=== PATIENT | female | born 1995 | race Caucasian/White ===

== ENCOUNTER 2017-10-26 10:18 | Emergency (ER) | END 2017-10-26 13:41 | disposition home or self-care (01) ==

== ENCOUNTER 2018-08-05 14:42 | Inpatient (IN) | payer MEDICAID, OTHER ==
[~2018-08-05] VITALS: Ht 157.5 cm; Wt 101.8 kg
[~2018-08-05 14:42] MED LIST: CIPR500T4 PO
[2018-08-05 15:59] VITALS: Ht 157.5 cm; Wt 101.8 kg
[2018-08-05 16:00] VITALS: BP 115/58; PULSE 110; RESP 18
[2018-08-05] MEDS ORDERED: CEFTRIAXONE 1 GM/50 ML (PMX) 50 ML IVPB ONE (20:30)
[2018-08-05] MEDS ORDERED: SOD CHLORIDE 0.9% 1,000 ML IV ONE (20:30)
[2018-08-05] MEDS ORDERED: ACETAMINOPHEN 1000MG/100ML IV 100 ML IVPB ONE (23:00)
[2018-08-05] MEDS: LACTATED RINGER'S 1,000 ML IV SCH (23:08)
[2018-08-06] MEDS ORDERED: ACETAMINOPHEN 325 MG TAB PO PRN (00:30)
[2018-08-06] MEDS ORDERED: ONDANSETRON 4 MG INJ IV PRN (00:30)
--- NOTE | 2018-08-06 01:28 | TRIAGE ---
OB Triage Datetime Report Generated by CPN: 08/06/2018 01:28 Datetime: 08/06/2018 01:03 Vaginal Exam Membrane Status: Intact Datetime: 08/05/2018 22:30 Stage of : OB Triage Datetime: 08/05/2018 22:16 Stage of : OB Triage Heart Rate FHR Baseline Rate: 150 Monitor Mode: External US Pain Assessment Pain Scale: 5 Pain Presence: Constant Pain Type: Stabbing Pain Location: Abdomen Pain Assessment Comments: Pt c/o cont pain under left ribcage and left groin area Datetime: 08/05/2018 21:38 Stage of : OB Triage Heart Rate FHR Baseline Rate: 145 Monitor Mode: External US Datetime: 08/05/2018 21:14 Heart Rate FHR Baseline Rate: 145 Monitor Mode: External US Datetime: 08/05/2018 21:00 Stage of : OB Triage Datetime: 08/05/2018 20:14 Stage of : OB Triage Monitor Mode: External Pattern: Normal: <= 5 Contractions in 10 Minutes Resting Tone [place]: Relaxed Heart Rate FHR Baseline Rate: 145 Monitor Mode: External US Datetime: 08/05/2018 20:05 Stage of : OB Triage Datetime: 08/05/2018 19:49 Pain Assessment Comments: Pt c/o cont pain. Laughing with family and Facetimimg friend on phone wit hout discomfort noted Datetime: 08/05/2018 19:32 Stage of : OB Triage Heart Rate FHR Baseline Rate: 150 Monitor Mode: External US Variability: Moderate 6-25 bpm Accelerations: 15X15 Comments: Baby audibly very active but difficult to monitor d/t pt body habitus and frequent reposi tioning Pain Assessment Pain Scale: 5 Pain Presence: Constant Pain Type: Stabbing Pain Location: Abdomen Datetime: 08/05/2018 18:19 Labor Evaluation Frequency: 0 Monitor Mode: External Pattern: Normal: <= 5 Contractions in 10 Minutes Resting Tone [place]: Relaxed Heart Rate FHR Baseline Rate: 145 Monitor Mode: External US Variability: Moderate 6-25 bpm Accelerations: None Decelerations: None Category: Category II Pain Assessment Pain Scale: 0 Pain Presence: None/Denies Pain Type: N/A Pain Goal: 3 Pain Relief Measures: Comfort Measures Datetime: 08/05/2018 17:16 Labor Evaluation Frequency: 0 Monitor Mode: External Pattern: Normal: <= 5 Contractions in 10 Minutes Resting Tone [place]: Relaxed Heart Rate FHR Baseline Rate: 150 Monitor Mode: External US Variability: Moderate 6-25 bpm Accelerations: None Decelerations: None Category: Category II Pain Assessment Pain Scale: 5 Pain Presence: Intermittent Pain Type: Cramping Pain Location: Perineum Pain Goal: 3 Pain Relief Measures: Comfort Measures Datetime: 08/05/2018 15:54 Stage of : OB Triage Datetime: 08/05/2018 15:49 Stage of : OB Triage Assessment Type: Triage Maternal Assessment Level of Consciousness: Keenly Alert, Responsive DTR's/Clonus: DTRs 2+; No Clonus Headache: Denies Blurred Vision: No Respiratory Effort: Unlabored; Regular Rhythm; Equal Expansion Breath Sounds, Left: Clear and Equal Breath Sounds, Right: Clear and Equal Nausea/Vomiting: Denies RUQ Epigastric Pain: Denies Facial Edema: None Temperature Route: Axillary Fall Risk Assessment History of Falling: (0) No Secondary Diagnosis: (0) No Ambulatory Aid: (0) Bedrest/Nurse Assist IV Therapy: (0) No Gait: (0) Normal/Bedrest/Immobile Mental Status: (0) Oriented to Own Ability Fall Score: 0 Fall Risk Score Definition: No Risk: No action required Labor Evaluation Frequency: 0 Monitor Mode: External Pattern: Normal: <= 5 Contractions in 10 Minutes Resting Tone [place]: Relaxed Heart Rate FHR Baseline Rate: 145 Monitor Mode: External US Variability: Moderate 6-25 bpm Accelerations: 10X10 Decelerations: None Category: Category I Pain Assessment Pain Scale: 5 Pain Presence: Intermittent Pain Type: Cramping; Contraction Pain Location: Perineum Pain Goal: 3 Pain Relief Measures: Comfort Measures Datetime: 08/05/2018 15:47 Time of Arrival: 08/05/2018 14:38 EGA: 30.6 Arrived By: Ambulatory Arrived From: Home Chief Complaint: C/O STREAM OF BLOOD DOWN HER LEG AT APPROX 130, C/O PERINEUM PAIN THAT IS INTERMIT TENT, DENIES LEAKING Movement: Decreased Contractions: Denies/Absent Rupture of Membranes: Denies Vaginal Bleeding: Small Vaginal Discharge: Denies Recent Sexual Intercouse: Denies Abdominal Trauma: Not Applicable Patient Complaints: Cramping Time Provider Notified: 08/05/2018 15:55 Provider Notified: abdias Initial Plan: MONITOR, BPP, TYPE_RH, CBC, CL
--- NOTE | 2018-08-06 07:33 | HP ---
Date/Time of Note Date/Time of Note DATE: 08/06/18 TIME: 07:11 OB - History Hx of Present Free Text/Dictation 23 y.o at 30w6d presented triage with c/o vaginal spotting without hx of intercourse,and pain near the ribcage mostly on left side which is intermittent. denies any leaking fluid, had nausea x1 vomit ,no diarrhea, had chills ? U/A ++ leuko est, wbc > 10 CBC wnl BPP 8/8 BRITTANEY 13.5 , no previa or abruptio pl, CVL 4.4 IV hydration with rocephin given, with IV tylenol for pain, continue to c/o left flank pain which wasn't alleviated . no uc's noted on EFM recked CVA which was ++ tenderness on left side admitted for IV antibiotics with fluid for another day and observe. urine culture was sent out. Chief Complaint: left flank pain Estimated Due Date: Oct 08, 2018 : 4 Para: 3 Spontaneous : 0 Therapeutic : 0 Care: Other Ultrasounds: No ultrasounds Obstetrical Complications: None Medical Complications: None Past Family/Social History * Past Medical, Surgical, Family and Obstetric Histories reviewed from chart. Blood Type: Unknown Rubella: unknown RPR/VDRL: Unknown GBS Status: Unknown HBsAG: Unknown OB Admission Exam Vital Signs Vital Signs Vital Signs Date Temp Pulse Resp B/P (MAP) Pulse Ox O2 O2 Flow FiO2 Time Delivery Rate 08/05/18 98.9 110 18 115/58 16:00 (77) Physical Exam HEENT: WNL Heart: Rhythm Normal Lungs: Clear, Equal Abdomen: WNL Extremities: Normal Reflexes: Other Cervical Dilatation: other Effacement: Other (CVL 4.4) Station: Other Membranes: Intact Amniotic Fluid: Unevaluable Heart Rate: 140's Accelerations: Accelerations Present Decelerations: No Decelerations Varibility: Moderate Contractions on Admission: None Last 72 hours Lab Results CBC & BMP 08/05/18 16:52 OB Assessment/Plan Reason for admission: other Other Assessment: IUP 30w6d [employer] Plan: Other (IV fluid with rocephin) NANCY ROACH MD Aug 06, 2018 07:29
[2018-08-06] MEDS: PRENATAL VITAMIN PO SCH (09:30)
[2018-08-06] MEDS: LACTATED RINGER'S 1,000 ML IV SCH ×3 (09:30→23:00)
[2018-08-06] MEDS: FERROUS SULFATE (EC) 325 MG TAB PO SCH (09:30)
[2018-08-06] MEDS: SOD CHLORIDE 0.9% 1,000 ML IV SCH ×3 (20:30→21:07)
[2018-08-06] MEDS: CEFTRIAXONE 1 GM/50 ML (PMX) 50 ML IVPB SCH (21:08)
[2018-08-07] MEDS: SOD CHLORIDE 0.9% 1,000 ML IV SCH ×3 (04:06→19:20)
[2018-08-07] MEDS: FERROUS SULFATE (EC) 325 MG TAB PO SCH (09:16)
[2018-08-07] MEDS: PRENATAL VITAMIN PO SCH (09:16)
[2018-08-07] MEDS: CEFTRIAXONE 1 GM/50 ML (PMX) 50 ML IVPB SCH (20:47)
--- NOTE | 2018-08-07 21:46 | QN ---
Documentation Comment Patient denies any fever or chills. Reports he still has flank pain which she reports her pain level decreased from 6-5. She denies any contraction. She denies any leaking of fluid, vaginal bleeding or decreased movement. Physical examination: General appearance: Alert and oriented x4 does not appear to be in any acute distress comfortable Abdomen: Soft, gravid, fundal height consider gestational age Mild CVA tenderness in both side noted Extremities: No calf tenderness, no click no edema no cord palpable NST: Category 1 and appropriate for gestational age Assessment IUP at 31 weeks and 1 day Undergoing treatment for pyelonephritis Currently on Rocephin every 24 hours Continue same management Urine culture pending If no clinical improvement after 48 hours may need renal ultrasound Currently afebrile, does not appear to be toxic IV hydration MYNOR ESTRADA MD Aug 07, 2018 21:46
[2018-08-08] MEDS: SOD CHLORIDE 0.9% 1,000 ML IV SCH ×4 (00:45→22:50)
[2018-08-08] MEDS: FERROUS SULFATE (EC) 325 MG TAB PO SCH (08:56)
[2018-08-08] MEDS: PRENATAL VITAMIN PO SCH (08:56)
--- NOTE | 2018-08-08 10:29 | QN ---
Documentation Comment 31+wks GA Pyelonephritis +Right CVA tenderness NST reassuring for GA [place] No CTxs pelvic deferred --->close Observation -->continue the antibiotics ERIK VAN M.D. Aug 08, 2018 10:29
[2018-08-08] MEDS: AL HYDROX/MG HYDROX/SIMETH 30 ML CUP PO PRN (15:11)
[2018-08-08] MEDS: CEFTRIAXONE 1 GM/50 ML (PMX) 50 ML IVPB SCH (21:14)
[2018-08-09] MEDS: AL HYDROX/MG HYDROX/SIMETH 30 ML CUP PO PRN (00:49)
[2018-08-09] MEDS: SOD CHLORIDE 0.9% 1,000 ML IV SCH (08:59)
[2018-08-09] MEDS: FERROUS SULFATE (EC) 325 MG TAB PO SCH (12:07)
[2018-08-09] MEDS: PRENATAL VITAMIN PO SCH (12:07)
--- NOTE | 2018-08-09 12:11 | DS ---
Date/Time of Note Date/Time of Note DATE: 08/09/18 TIME: 12:10 Obstetrical Discharge Record Final Diagnosis Final Diagnosis: not delivered Other Final Diagnosis Patient is a 23-year-old 4 para 0 at 31 weeks and 3 days of gestation admitted with diagnosis of pyelonephritis Patient has been receiving IV antibiotics She remained stable and afebrile She has no complaints today Microbiology URINE CULTURE Final Organism 1 MIXED GRAM POSITIVE ORGANISMS COLONY COUNT 50,000 - 60,000 CFU/ml Recovery of multiple organisms in a urine specimen is consistent with contamination. Full speciation and susceptibilities may provide misleading information in a "dirty catch" specimen. If clinically indicated, a repeat specimen is recommended. Prescription for Macrobid was given Patient was given instruction to follow-up with [facility] in 1 to 2 days Condition on Discharge Physical Assessment Last Vitals: Vital Signs Date Temp Pulse Resp B/P (MAP) Pulse Ox O2 O2 Flow FiO2 Time Delivery Rate 08/05/18 98.9 110 18 115/58 16:00 (77) Voiding: Yes Breast: Soft, non-tender Fundus: Other (Gravid) Calf Tenderness: No Patient Condition: Good Copies To: CC: DARRELL GARRISON BAHAREH MD Aug 09, 2018 12:11
[2018-08-09] MEDS ORDERED: PREN1TAB71 PO (12:23)
== END 2018-08-09 13:00 | disposition home or self-care (01) | DRG 833 ==
LOC: OBT 14:42 → L-D 14:43 → OBT 08-06 00:01 → L-D 08-06 00:01
PROVIDERS: ADMIT Obstetrics & Gynecology; ATTEND Obstetrics & Gynecology
DX: O23.03 Infections of kidney in pregnancy, third trimester (principal); Z3A.31 31 weeks gestation of pregnancy
CPT/HCPCS: 76817; 76818; 81001; 83036; 85025; 86900; 86901; 87086; 96360; 96361; 96365; G0463; J0131; J0696; J7030; J7120

== ENCOUNTER 2018-08-23 00:45 | Outpatient (CLI) | payer SELFPAY ==
[~2018-08-23] VITALS: Ht 157.5 cm; Wt 103.1 kg
[~2018-08-23 00:45] MED LIST changes: -CIPR500T4 PO; +PREN1TAB71 PO
[2018-08-23 01:18] VITALS: BP 118/68; PULSE 93; RESP 18
[2018-08-23 02:29] VITALS: Ht 157.5 cm; Wt 103.1 kg
--- NOTE | 2018-08-23 03:10 | PN ---
Triage Information Date/Time Reason for visit: DFM Weeks of Gestation 33 weeks /Para Diabetes: gestational Diabetes management: diet controlled Hypertention: none Objective Vital Signs Date Temp Pulse Resp B/P (MAP) Pulse Ox O2 O2 Flow FiO2 Time Delivery Rate 08/23/18 98.2 93 18 118/68 Room Air 01:18 (85) Heart Rate: 130's Heart Rate Comments Reactive Contractions: None Results/Medications Results 24 hrs Laboratory Tests Test 08/23/18 01:23 Bedside Glucose 105 Imaging Results BPP 09/30 Disposition: Discharge Assessment/Plan Follow up in clinic in AM. Antepartum testing on 08/24/2018. JAMSHID LOGAN MD Aug 23, 2018 03:10
--- NOTE | 2018-08-23 04:39 | TRIAGE ---
OB Triage Datetime Report Generated by CPN: 08/23/2018 04:38 Datetime: 08/23/2018 03:00 Labor Evaluation Frequency: 0 Monitor Mode: External Pattern: Normal: <= 5 Contractions in 10 Minutes Heart Rate FHR Baseline Rate: 130 Monitor Mode: External US Variability: Moderate 6-25 bpm Accelerations: 15X15 Datetime: 08/23/2018 02:00 Labor Evaluation Frequency: x1 Monitor Mode: External Duration (sec)2399: 120 Pattern: Normal: <= 5 Contractions in 10 Minutes Heart Rate FHR Baseline Rate: 140 Monitor Mode: External US Variability: Moderate 6-25 bpm Accelerations: 15X15 Decelerations: None Comments: loss of contact Datetime: 08/23/2018 01:56 Monitor Mode: External US Datetime: 08/23/2018 01:18 Stage of : OB Triage Assessment Type: Triage Maternal Assessment Level of Consciousness: Keenly Alert, Responsive DTR's/Clonus: DTRs 2+; No Clonus Headache: Frontal Blurred Vision: No Respiratory Effort: Unlabored; Regular Rhythm; Equal Expansion Breath Sounds, Left: Clear and Equal Breath Sounds, Right: Clear and Equal Nausea/Vomiting: Denies RUQ Epigastric Pain: Denies Lower Extremities Edema: None Degree: None Upper Extremities Edema: None Degree: None Facial Edema: None Temperature Route: Oral Bedside Blood Glucose: 105 Fall Risk Assessment History of Falling: (0) No Secondary Diagnosis: (0) No Ambulatory Aid: (0) Bedrest/Nurse Assist IV Therapy: (0) No Gait: (0) Normal/Bedrest/Immobile Mental Status: (0) Oriented to Own Ability Fall Score: 0 Fall Risk Score Definition: No Risk: No action required Pain Assessment Pain Scale: 3 Pain Presence: Intermittent Pain Type: Cramping Pain Location: Abdomen Pain Goal: 0 Pain Relief Measures: Comfort Measures Datetime: 08/23/2018 01:17 Comments: AUDIBLE FHT'S. MONITORS APPLIED. Datetime: 08/23/2018 00:50 Time of Arrival: 08/23/2018 00:45 EGA: 33.3 Arrived By: Ambulatory Arrived From: Home Chief Complaint: HIGH BLOOD SUGAR AND DFM Movement: Decreased Contractions: Denies/Absent Rupture of Membranes: Denies Vaginal Bleeding: None Vaginal Discharge: Denies Recent Sexual Intercouse: Denies Abdominal Trauma: Not Applicable Patient Complaints: Other Time Provider Notified: 08/23/2018 02:49 Provider Notified: DELSHAD Initial Plan: CEFM, ACCUCHECK, BPP, UA Datetime: 08/09/2018 11:51 Maternal Assessment Level of Consciousness: Keenly Alert, Responsive Headache: Denies Blurred Vision: No Nausea/Vomiting: Denies RUQ Epigastric Pain: Denies Facial Edema: None Labor Evaluation Frequency: x1 Monitor Mode: External Duration (sec)2399: 60 Quality: Mild Pattern: Normal: <= 5 Contractions in 10 Minutes Resting Tone Vass: Relaxed Heart Rate FHR Baseline Rate: 130 Monitor Mode: External US FHR Baseline Changes: No Baseline Change Variability: Moderate 6-25 bpm Accelerations: 15X15 Decelerations: None Pain Assessment Pain Scale: 4 Pain Presence: Constant Pain Type: Cramping Pain Location: Back Datetime: 08/09/2018 10:00 Maternal Assessment Level of Consciousness: Keenly Alert, Responsive Headache: Denies Blurred Vision: No Nausea/Vomiting: Denies RUQ Epigastric Pain: Denies Facial Edema: None Pain Assessment Pain Scale: 4 Pain Presence: Constant Pain Type: Cramping Pain Location: Back Datetime: 08/09/2018 09:03 Assessment Type: Ongoing Assessment Maternal Assessment Level of Consciousness: Keenly Alert, Responsive Headache: Denies Blurred Vision: No Respiratory Effort: Unlabored; Regular Rhythm; Equal Expansion Breath Sounds, Left: Clear and Equal Breath Sounds, Right: Clear and Equal Nausea/Vomiting: Denies RUQ Epigastric Pain: Denies Lower Extremities Edema: None Degree: None Upper Extremities Edema: None Degree: None Facial Edema: None Fall Risk Assessment History of Falling: (0) No Secondary Diagnosis: (0) No Ambulatory Aid: (0) Bedrest/Nurse Assist IV Therapy: (20) Yes (Annotations: INFUSING NS @100ML/HR) Gait: (0) Normal/Bedrest/Immobile Mental Status: (0) Oriented to Own Ability Fall Score: 20 Fall Risk Score Definition: No Risk: No action required Pain Assessment Pain Scale: 4 Pain Presence: Constant Pain Type: Cramping Pain Location: Back Datetime: 08/09/2018 00:37 Maternal Assessment Level of Consciousness: Keenly Alert, Responsive Temperature Route: Oral Datetime: 08/08/2018 20:18 Labor Evaluation Frequency: X1 Monitor Mode: External Duration (sec)2399: 90 Quality: Mild Heart Rate FHR Baseline Rate: 150 Monitor Mode: External US FHR Baseline Changes: No Baseline Change Variability: Moderate 6-25 bpm Accelerations: 15X15 Decelerations: None Category: Category I Comments: DIFFICULT TO GET SOLID TRACING - HAND HELD FOR STRIP. Datetime: 08/08/2018 19:41 Assessment Type: Ongoing Assessment Maternal Assessment Level of Consciousness: Keenly Alert, Responsive Maternal Assessment Level of Consciousness: Keenly Alert, Responsive Headache: Denies Headache: Denies Blurred Vision: No Respiratory Effort: Unlabored; Regular Rhythm; Equal Expansion Nausea/Vomiting: Denies Nausea/Vomiting: Denies RUQ Epigastric Pain: Denies Lower Extremities Edema: None Upper Extremities Edema: None Facial Edema: None Temperature Route: Oral Fall Risk Assessment History of Falling: (0) No Secondary Diagnosis: (0) No Ambulatory Aid: (0) Bedrest/Nurse Assist IV Therapy: (20) Yes Gait: (0) Normal/Bedrest/Immobile Mental Status: (0) Oriented to Own Ability Fall Score: 20 Fall Risk Score Definition: No Risk: No action required Datetime: 08/08/2018 12:54 Temperature Route: Oral Pain Assessment Pain Scale: 3 Pain Presence: Intermittent Pain Type: Ache Pain Location: Back Pain Goal: 0 Pain Relief Measures: Comfort Measures Datetime: 08/08/2018 09:30 Labor Evaluation Frequency: 0 Monitor Mode: External Heart Rate FHR Baseline Rate: 135 Monitor Mode: External US FHR Baseline Changes: No Baseline Change Variability: Moderate 6-25 bpm Accelerations: 15X15 Decelerations: None Category: Category I Comments: NST COMPLETE AND STRIP IS REACTIVE. Datetime: 08/08/2018 09:05 Monitor Mode: External Monitor Mode: External US Comments: NST STARTED NOW. TOCO AND US PLACED EXTERNALLY Datetime: 08/08/2018 07:40 Assessment Type: Ongoing Assessment Maternal Assessment Level of Consciousness: Keenly Alert, Responsive DTR's/Clonus: DTRs 2+; No Clonus Headache: Denies Blurred Vision: No Respiratory Effort: Unlabored; Regular Rhythm; Equal Expansion Breath Sounds, Left: Clear and Equal Breath Sounds, Right: Clear and Equal Nausea/Vomiting: Denies RUQ Epigastric Pain: Denies Lower Extremities Edema: None Upper Extremities Edema: None Facial Edema: None Fall Risk Assessment History of Falling: (0) No Secondary Diagnosis: (0) No Ambulatory Aid: (0) Bedrest/Nurse Assist IV Therapy: (20) Yes Gait: (0) Normal/Bedrest/Immobile Mental Status: (0) Oriented to Own Ability Fall Score: 20 Fall Risk Score Definition: No Risk: No action required Datetime: 08/08/2018 05:52 Stage of : Antepartum Temperature Route: Oral Pain Presence: None/Denies Datetime: 08/07/2018 21:29 Labor Evaluation Frequency: 0 Monitor Mode: External Duration (sec)2399: DENIES Resting Tone Vass: Relaxed Heart Rate FHR Baseline Rate: 135 Monitor Mode: External US Variability: Moderate 6-25 bpm Accelerations: 15X15 Decelerations: None Comments: NST DONE APPROPRIATE FOR GA. Pain Presence: None/Denies Datetime: 08/07/2018 20:51 Monitor Mode: External Contraction Comments: PLACED NST STARTED. Monitor Mode: External US Comments: PLACED NST STARTED. Datetime: 08/07/2018 19:46 Stage of : Antepartum Assessment Type: Ongoing Assessment Maternal Assessment Level of Consciousness: Keenly Alert, Responsive DTR's/Clonus: DTRs 2+; No Clonus Headache: Denies Blurred Vision: No Respiratory Effort: Unlabored; Regular Rhythm; Equal Expansion Breath Sounds, Left: Clear and Equal Breath Sounds, Right: Clear and Equal Nausea/Vomiting: Denies RUQ Epigastric Pain: Denies Lower Extremities Edema: None Degree: None Upper Extremities Edema: None Degree: None Facial Edema: None Temperature Route: Oral Fall Risk Assessment History of Falling: (0) No Secondary Diagnosis: (0) No Ambulatory Aid: (0) Bedrest/Nurse Assist IV Therapy: (0) No Gait: (0) Normal/Bedrest/Immobile Mental Status: (0) Oriented to Own Ability Fall Score: 0 Fall Risk Score Definition: No Risk: No action required Pain Presence: None/Denies Vaginal Exam Membrane Status: Intact Datetime: 08/07/2018 18:17 Pain Assessment Pain Scale: 5 Pain Presence: Constant Pain Type: Ache Pain Location: Back Pain Goal: 5 Pain Relief Measures: Comfort Measures Datetime: 08/07/2018 15:10 Pain Assessment Pain Scale: 5 Pain Presence: Constant Pain Type: Ache Pain Location: Back Pain Relief Measures: Comfort Measures Pain Assessment Comments: continues to deny need for pain meds Datetime: 08/07/2018 13:00 Pain Assessment Pain Scale: 5 Pain Presence: Constant Pain Type: Ache Pain Location: Back Pain Goal: 5 Pain Relief Measures: Comfort Measures (Annotations: extra pillows given for comfort, encouraged po sition changes) Datetime: 08/07/2018 11:16 Pain Assessment Pain Scale: 5 Pain Presence: Constant Pain Type: Ache Pain Location: Back Pain Goal: 5 Pain Relief Measures: Comfort Measures Pain Assessment Comments: states pain is tolerable and remains a 5/10 while awake even after Tyleno l. denies need for pain meds at this time Datetime: 08/07/2018 09:56 Labor Evaluation Frequency: 0 Monitor Mode: External Resting Tone Vass: Relaxed Heart Rate FHR Baseline Rate: 120 Monitor Mode: External US Variability: Moderate 6-25 bpm Accelerations: 15X15 Decelerations: None Category: Category I Datetime: 08/07/2018 09:25 Comments: loss of contact Datetime: 08/07/2018 09:21 Comments: nst started Datetime: 08/07/2018 07:39 Assessment Type: Ongoing Assessment Maternal Assessment Level of Consciousness: Keenly Alert, Responsive DTR's/Clonus: DTRs 2+; No Clonus Headache: Denies Headache: Denies Blurred Vision: No Blurred Vision: No Respiratory Effort: Unlabored; Regular Rhythm; Equal Expansion Breath Sounds, Left: Clear and Equal Breath Sounds, Right: Clear and Equal Nausea/Vomiting: Denies Nausea/Vomiting: Denies RUQ Epigastric Pain: Denies RUQ Epigastric Pain: Denies Lower Extremities Edema: None Degree: None Upper Extremities Edema: None Degree: None Facial Edema: None Facial Edema: None Fall Risk Assessment History of Falling: (0) No Secondary Diagnosis: (0) No Ambulatory Aid: (0) Bedrest/Nurse Assist Gait: (0) Normal/Bedrest/Immobile Mental Status: (0) Oriented to Own Ability Pain Presence: None/Denies Pain Type: N/A Datetime: 08/07/2018 04:13 Maternal Assessment Level of Consciousness: Keenly Alert, Responsive Temperature Route: Oral Pain Assessment Pain Scale: 0 Datetime: 08/06/2018 23:42 Temperature Route: Oral Pain Assessment Pain Scale: 5 Pain Presence: Constant Pain Type: Ache Pain Location: Back Datetime: 08/06/2018 21:10 Pain Assessment Pain Scale: 6 Pain Relief Measures: Pain Medication Given Datetime: 08/06/2018 20:40 Labor Evaluation Frequency: 0 Monitor Mode: External Comments: FHR 140-165. HAND HELD FOR STRIP. MUCH MOVEMENT NOTED AND AUDILBLE ACCELS. Datetime: 08/06/2018 20:25 Temperature Route: Oral Pain Assessment Pain Scale: 6 Pain Presence: Constant Pain Type: Ache Pain Location: Back Pain Relief Measures: Comfort Measures Pain Assessment Comments: STATES THE PAIN SAME ALL DAY, NO CHANGES Datetime: 08/06/2018 20:20 Assessment Type: Ongoing Assessment Maternal Assessment Level of Consciousness: Keenly Alert, Responsive Headache: Denies Blurred Vision: No Respiratory Effort: Unlabored; Regular Rhythm; Equal Expansion Nausea/Vomiting: Denies RUQ Epigastric Pain: Denies Lower Extremities Edema: None Upper Extremities Edema: None Facial Edema: None Fall Risk Assessment History of Falling: (0) No Secondary Diagnosis: (0) No Ambulatory Aid: (0) Bedrest/Nurse Assist IV Therapy: (20) Yes Gait: (0) Normal/Bedrest/Immobile Mental Status: (0) Oriented to Own Ability Fall Score: 20 Fall Risk Score Definition: No Risk: No action required Datetime: 08/06/2018 19:30 Stage of : Antepartum Datetime: 08/06/2018 16:21 Stage of : Antepartum Temperature Route: Oral Pain Assessment Pain Scale: 4 Pain Presence: Constant Pain Type: Ache Pain Location: Back; Right Flank; Left Flank Datetime: 08/06/2018 10:21 Stage of : Antepartum Pain Assessment Pain Scale: 3 Pain Presence: Constant Pain Type: Ache Pain Location: Left Flank Datetime: 08/06/2018 10:19 Labor Evaluation Frequency: none Monitor Mode: External Heart Rate FHR Baseline Rate: 135 Monitor Mode: External US Variability: Moderate 6-25 bpm Accelerations: 15X15 Decelerations: None Datetime: 08/06/2018 09:31 Comments: Monitors applied for q shift NST Datetime: 08/06/2018 09:00 Assessment Type: Ongoing Assessment Maternal Assessment Level of Consciousness: Keenly Alert, Responsive DTR's/Clonus: DTRs 2+; No Clonus Headache: Denies Blurred Vision: No Respiratory Effort: Unlabored; Regular Rhythm; Equal Expansion Breath Sounds, Left: Clear and Equal Breath Sounds, Right: Clear and Equal Nausea/Vomiting: Denies Lower Extremities Edema: None Degree: None Upper Extremities Edema: None Degree: None Facial Edema: None Fall Risk Assessment History of Falling: (0) No Secondary Diagnosis: (0) No Ambulatory Aid: (0) Bedrest/Nurse Assist IV Therapy: (20) Yes Gait: (0) Normal/Bedrest/Immobile Mental Status: (0) Oriented to Own Ability Fall Score: 20 Fall Risk Score Definition: No Risk: No action required Datetime: 08/06/2018 05:30 Pain Assessment Pain Scale: 0 Pain Presence: None/Denies Pain Type: N/A Pain Assessment Comments: Pt resting with eyes closed. Datetime: 08/06/2018 03:00 Pain Assessment Pain Scale: 0 Pain Presence: None/Denies Pain Type: N/A Pain Assessment Comments: No pain at this time. Pt able to rest. Datetime: 08/06/2018 02:00 Assessment Type: Admission Assessment Vaginal Bleeding: None Maternal Assessment Level of Consciousness: Keenly Alert, Responsive DTR's/Clonus: DTRs 2+; No Clonus Headache: Denies Blurred Vision: No Respiratory Effort: Unlabored; Regular Rhythm; Equal Expansion Breath Sounds, Left: Clear and Equal Breath Sounds, Right: Clear and Equal Nausea/Vomiting: Denies RUQ Epigastric Pain: Denies Lower Extremities Edema: None Degree: None Upper Extremities Edema: None Degree: None Facial Edema: None Fall Risk Assessment History of Falling: (0) No Secondary Diagnosis: (0) No Ambulatory Aid: (0) Bedrest/Nurse Assist IV Therapy: (20) Yes Gait: (0) Normal/Bedrest/Immobile Mental Status: (0) Oriented to Own Ability Fall Score: 20 Fall Risk Score Definition: No Risk: No action required Pain Assessment Pain Scale: 3 Pain Presence: Intermittent Pain Type: Dull Pain Location: Abdomen; Back Datetime: 08/06/2018 00:00 Stage of : OB Triage Comments: EFM removed Pain Assessment Pain Scale: 5 Pain Presence: Constant Pain Type: Stabbing; Ache Pain Location: Abdomen; Back Datetime: 08/05/2018 23:26 Stage of : OB Triage Comments: Pt frequently moving and baby difficult to monitor Datetime: 08/05/2018 15:49 Fall Score: 0 Fall Risk Score Definition: No Risk: No action required Datetime: 08/05/2018 15:47 EGA: 30.6
== END 2018-08-23 02:45 | disposition home or self-care (01) ==
LOC: L-D 00:45 → OBT 00:45
PROVIDERS: ATTEND Obstetrics & Gynecology
DX: O36.8130 Decreased fetal movements, third trimester, not applicable or unspecified (principal); O24.410 Gestational diabetes mellitus in pregnancy, diet controlled; Z3A.33 33 weeks gestation of pregnancy
CPT/HCPCS: 76818; 81003; 82962; G0463

== ENCOUNTER 2018-09-23 16:14 | Outpatient (CLI) | payer OTHER ==
[~2018-09-23] VITALS: Ht 157.5 cm; Wt 106.7 kg
[2018-09-23 16:38] VITALS: BP 127/67; PULSE 109; RESP 19; Ht 157.5 cm; Wt 106.7 kg
--- NOTE | 2018-09-23 22:02 | PN ---
Triage Information Date/Time 09/23/1803/13/2039 Reason for visit: itching on palm and sole Weeks of Gestation 37w6d /Para Diabetes: gestational Hypertention: none Additional information only for few days of itching Objective Vital Signs Date Temp Pulse Resp B/P (MAP) Pulse Ox O2 O2 Flow FiO2 Time Delivery Rate 09/23/18 97.5 109 19 127/67 Room Air 16:38 (87) Contractions: None Exam VE //-3 Results/Medications Results 24 hrs Laboratory Tests Test 09/23/18 16:48 Total Bilirubin 0.3 Direct Bilirubin 0.00 Indirect Bilirubin 0.3 Aspartate Amino Transf (AST/SGOT) 36 Alanine Aminotransferase (ALT/SGPT) 17 Alkaline Phosphatase 237 H Total Protein 6.3 Albumin 3.4 Imaging Results BPP 09/30 BRITTANEY 8.1 Disposition: Discharge Assessment/Plan A IUP 37w6d borderline oligohydramnios P RTH for repeat BRITTANEY bile acid sent but takes time to get result for R/O cholestasis Normal LFT NANCY ROACH MD Sep 23, 2018 22:02
--- NOTE | 2018-09-24 02:24 | TRIAGE ---
OB Triage Datetime Report Generated by CPN: 09/24/2018 02:24 Datetime: 09/23/2018 19:33 Pain Assessment Pain Scale: 0 Pain Presence: None/Denies Pain Type: N/A Datetime: 09/23/2018 19:32 Vaginal Exam Dilatation (cms): 1.0 Effacement (%): 0 Station: -3 Exam By: M. Tungate RN Vaginal Bleeding: None Cervix, Consistency: Soft Cervix, Position: Posterior Datetime: 09/23/2018 18:43 Labor Evaluation Frequency: 0 Pattern: Normal: <= 5 Contractions in 10 Minutes Resting Tone [place]: Relaxed Heart Rate FHR Baseline Rate: 140 Monitor Mode: External US Variability: Moderate 6-25 bpm Accelerations: 15X15 Decelerations: None Category: Category I Datetime: 09/23/2018 17:57 Labor Evaluation Frequency: 0 Pattern: Normal: <= 5 Contractions in 10 Minutes Resting Tone [place]: Relaxed Heart Rate FHR Baseline Rate: 145 Monitor Mode: External US FHR Baseline Changes: No Baseline Change Variability: Moderate 6-25 bpm Accelerations: 15X15 Decelerations: None Category: Category I Datetime: 09/23/2018 16:57 Assessment Type: Triage Maternal Assessment Level of Consciousness: Keenly Alert, Responsive DTR's/Clonus: DTRs 2+; No Clonus Headache: Denies Blurred Vision: No Respiratory Effort: Unlabored; Regular Rhythm; Equal Expansion Breath Sounds, Left: Clear and Equal Breath Sounds, Right: Clear and Equal Nausea/Vomiting: Denies RUQ Epigastric Pain: Denies Lower Extremities Edema: None Degree: None Upper Extremities Edema: None Degree: None Facial Edema: None Fall Risk Assessment History of Falling: (0) No Secondary Diagnosis: (0) No Ambulatory Aid: (0) Bedrest/Nurse Assist IV Therapy: (0) No Gait: (0) Normal/Bedrest/Immobile Mental Status: (0) Oriented to Own Ability Fall Score: 0 Fall Risk Score Definition: No Risk: No action required Datetime: 09/23/2018 16:54 Time of Arrival: 09/23/2018 16:05 EGA: 37.6 Arrived By: Ambulatory Arrived From: Home Chief Complaint: Sent from office for R/O cholestasis. Movement: Present Contractions: Denies/Absent Rupture of Membranes: Denies Vaginal Bleeding: None Vaginal Discharge: Denies Recent Sexual Intercouse: Denies Abdominal Trauma: Not Applicable Patient Complaints: Other Time Provider Notified: 09/24/2018 19:47 Provider Notified: Dr. Lexus Initial Plan: NST. BPP, LFT's, bile acids Datetime: 08/23/2018 01:18 Fall Score: 0 Fall Risk Score Definition: No Risk: No action required Datetime: 08/23/2018 00:50 EGA: 33.3 Datetime: 08/09/2018 09:03 Fall Score: 20 Fall Risk Score Definition: No Risk: No action required Datetime: 08/08/2018 19:41 Fall Score: 20 Fall Risk Score Definition: No Risk: No action required Datetime: 08/08/2018 07:40 Fall Score: 20 Fall Risk Score Definition: No Risk: No action required Datetime: 08/07/2018 19:46 Fall Score: 0 Fall Risk Score Definition: No Risk: No action required Datetime: 08/06/2018 20:20 Fall Score: 20 Fall Risk Score Definition: No Risk: No action required Datetime: 08/06/2018 09:00 Fall Score: 20 Fall Risk Score Definition: No Risk: No action required Datetime: 08/06/2018 02:00 Fall Score: 20 Fall Risk Score Definition: No Risk: No action required Datetime: 08/05/2018 15:49 Fall Score: 0 Fall Risk Score Definition: No Risk: No action required Datetime: 08/05/2018 15:47 EGA: 30.6
== END 2018-09-23 20:30 | disposition home or self-care (01) ==
LOC: L-D 16:14 → OBT 16:14
PROVIDERS: ATTEND Obstetrics & Gynecology
DX: O24.419 Gestational diabetes mellitus in pregnancy, unspecified control (principal); O26.893 Other specified pregnancy related conditions, third trimester; L29.9 Pruritus, unspecified; Z3A.37 37 weeks gestation of pregnancy
CPT/HCPCS: 76818; 80076; 83789; Z7500; G0463

== ENCOUNTER 2018-10-05 22:13 | Inpatient (IN) | payer OTHER ==
[~2018-10-05] VITALS: Ht 157.5 cm; Wt 109.2 kg
[2018-10-05 22:21] VITALS: Ht 157.5 cm; Wt 109.2 kg
[2018-10-06] MEDS ORDERED: ACETAMINOPHEN 325 MG TAB PO ONE ×2 (00:30→23:30)
[2018-10-06] MEDS ORDERED: LACTATED RINGER'S 1,000 ML IV PRN (01:51)
[2018-10-06] MEDS ORDERED: CARBOPROST 250 MCG INJ IM PRN (02:00)
[2018-10-06] MEDS ORDERED: MISOPROSTOL 200 MCG TAB PR PRN (02:00)
[2018-10-06] MEDS ORDERED: LIDOCAINE 1% (MPF) 30 ML INJ INJ PRN (02:00)
[2018-10-06] MEDS ORDERED: METHYLERGONOVINE 0.2 MG INJ IM PRN (02:00)
[2018-10-06] MEDS ORDERED: OXYTOCIN 30 UNITS/LR 500 ML IV SCH ×3 (02:00→21:30)
[2018-10-06] MEDS ORDERED: IBUPROFEN 600 MG TAB PO PRN ×2 (02:00→12:30)
[2018-10-06] MEDS ORDERED: OXYTOCIN 30 UNITS/LR 500 ML IV PRN (02:00)
[2018-10-06] MEDS ORDERED: MISOPROSTOL 50 MCG CAPSULE PO SCH (02:30)
[2018-10-06] MEDS: LACTATED RINGER'S 1,000 ML IV SCH ×3 (02:58→16:59)
[2018-10-06] MEDS: MISOPROSTOL 50 MCG CAPSULE PO PRN ×2 (03:45→07:41)
[2018-10-06] MEDS ORDERED: OXYCODONE/ASPIRIN (4.88/325) TAB PO PRN (12:30)
[2018-10-06] MEDS ORDERED: FENTAnyl 2MCG/ML-ROPIV 0.2% 100 ML ONE (12:43)
[2018-10-06] MEDS ORDERED: DEXTROSE 5%-LR 1,000 ML IV PRN (17:55)
[2018-10-06] MEDS: FENTAnyl 2MCG/ML-ROPIV 0.2% 100 ML BAG EPI SCH (20:13)
[2018-10-06] MEDS ORDERED: ONDANSETRON 4 MG INJ IV PRN (20:30)
[2018-10-06] MEDS ORDERED: DIPHENHYDRAMINE 50 MG INJ IV PRN (20:30)
[2018-10-06] MEDS ORDERED: NALOXONE (0.4 MG/ML) INJ IV PRN (20:30)
[2018-10-07] MEDS: FENTAnyl 2MCG/ML-ROPIV 0.2% 100 ML BAG EPI SCH ×2 (02:13→07:28)
[2018-10-07] MEDS ORDERED: MINERAL OIL LIGHT 10 ML VIAL TOP PRN (04:00)
[2018-10-07] MEDS: LACTATED RINGER'S 1,000 ML IV SCH (04:46)
[2018-10-07] MEDS ORDERED: OXYTOCIN 30 UNITS/LR 500 ML IV SCH (14:12)
[2018-10-07] MEDS ORDERED: ACETAMINOPHEN 325 MG TAB PO PRN (14:30)
[2018-10-07] MEDS ORDERED: CARBOPROST 250 MCG INJ IM PRN (14:30)
[2018-10-07] MEDS ORDERED: ZOLPIDEM 5 MG TAB PO PRN (14:30)
[2018-10-07] MEDS ORDERED: OXYTOCIN 30 UNITS/LR 500 ML IV PRN (14:30)
[2018-10-07] MEDS ORDERED: ONDANSETRON 4 MG INJ IV PRN (14:30)
[2018-10-07] MEDS ORDERED: LANOLIN HPA 1 PKT TOP PRN (14:30)
[2018-10-07] MEDS: PRENATAL VITAMIN PO SCH (14:30)
[2018-10-07] MEDS ORDERED: MISOPROSTOL 200 MCG TAB PR PRN (14:30)
[2018-10-07] MEDS ORDERED: HYDROCODONE/APAP (5/325) TAB PO PRN (14:30)
[2018-10-07] MEDS ORDERED: WITCH HAZEL/GLYCERIN PAD PR PRN (14:30)
[2018-10-07] MEDS ORDERED: NACL 0.9% 3 ML SYG IV SCH (14:30)
[2018-10-07] MEDS ORDERED: DIPHENHYDRAMINE 25 MG CAP PO PRN (14:30)
[2018-10-07 16:45] VITALS: BP 122/68; PULSE 63; RESP 18
[2018-10-07] MEDS: IBUPROFEN 600 MG TAB PO SCH ×2 (17:23→23:41)
[2018-10-07 20:10] VITALS: BP 120/59; PULSE 55; RESP 18
[2018-10-07] MEDS: SENNA/DOCUSATE NA (8.6MG/50MG) TAB PO SCH (21:47)
[2018-10-08 00:10] VITALS: BP 118/60; PULSE 62; RESP 17
[2018-10-08 03:40] VITALS: BP 114/57; PULSE 68; RESP 18
[2018-10-08] MEDS: IBUPROFEN 600 MG TAB PO SCH ×3 (05:39→18:00)
[2018-10-08 08:00] VITALS: BP 102/50; PULSE 70; RESP 18
[2018-10-08] MEDS: PRENATAL VITAMIN PO SCH (12:00)
[2018-10-08] MEDS: SENNA/DOCUSATE NA (8.6MG/50MG) TAB PO SCH ×2 (12:01→21:00)
[2018-10-08 17:37] VITALS: BP 109/51; PULSE 63; RESP 18
[2018-10-08 20:15] VITALS: BP 103/60; PULSE 66; RESP 18
[2018-10-09] MEDS: IBUPROFEN 600 MG TAB PO SCH ×3 (00:03→12:01)
[2018-10-09 03:28] VITALS: BP 107/55; PULSE 72; RESP 18
[2018-10-09 08:45] VITALS: BP 109/61; RESP 18
[2018-10-09] MEDS: SENNA/DOCUSATE NA (8.6MG/50MG) TAB PO SCH (08:51)
[2018-10-09] MEDS: PRENATAL VITAMIN PO SCH (08:51)
[2018-10-09] MEDS ORDERED: MEASLES,MUMPS,RUBELLA VACCINE INJ SC* ONE (09:00)
[2018-10-09] MEDS ORDERED: VARICELLA VACCINE LIVE/PF 1,350 UNIT/0.5 ML ML SC* ONE (09:00)
[2018-10-09] MEDS ORDERED: DIPHTH/TET/ACEL PERTUSS (ADULT) 0.5 ML VIAL IM* ONE (09:00)
== END 2018-10-09 15:50 | disposition home or self-care (01) | DRG 807 ==
LOC: OBT 22:13 → L-D 22:14 → OBT 10-06 01:02 → L-D 10-06 01:02 → PP1 10-07 16:18
PROVIDERS: ADMIT Obstetrics & Gynecology; ATTEND Obstetrics & Gynecology
PROC: 4A1HXCZ Monitoring of Products of Conception, Cardiac Rate, External Approach (ICD-10-PCS; 2018-10-06)
PROC: 10E0XZZ Delivery of Products of Conception, External Approach (ICD-10-PCS; principal; 2018-10-07)
PROC: 0KQM0ZZ Repair Perineum Muscle, Open Approach (ICD-10-PCS; 2018-10-07)
PROC: 10907ZC Drainage of Amniotic Fluid, Therapeutic from Products of Conception, Via Natural or Artificial Opening (ICD-10-PCS; 2018-10-07)
DX: O41.03X0 Oligohydramnios, third trimester, not applicable or unspecified (principal); Z37.0 Single live birth; Z3A.39 39 weeks gestation of pregnancy; O99.214 Obesity complicating childbirth; O76 Abnormality in fetal heart rate and rhythm complicating labor and delivery; O70.1 Second degree perineal laceration during delivery; O77.0 Labor and delivery complicated by meconium in amniotic fluid
CPT/HCPCS: 62322; 76815; 76818; 80053; 81001; 82962; 84560; 85025; 85384; 85610; 85730; 86592; 86850; 86900; 86901; 87340; 90716; 99464; G0463; J2590; J3010; J7120